=== PATIENT | female | born 1990 | race Caucasian/White ===

== ENCOUNTER 2018-03-14 18:04 | Emergency (ER) | payer MEDICAID ==
[~2018-03-14] VITALS: Ht 162.6 cm; Wt 70.3 kg
[~2018-03-14 18:04] MED LIST: ASPI81CH43 GT; DILT180C62 PO; ENAL5TAB PO; GABA250S2 PO; INSLANTI SC; METF-370 PO; PRAV20TA3 PO; PROGRAF; SIRO1TAB3 PO; SIRO2TAB PO; TACR5CAP3 PO
[2018-03-14] MEDS ORDERED: ATOR20TA50 PO (18:25)
[2018-03-14 18:49] LABS: Eosinophils # (auto) 0.1 uL
[2018-03-14 18:51] LABS: Basophils # (auto) 0.1 uL; Basophils % (auto) 0.7 % (0.0-2.0); Eosinophils % (auto) 0.3 % (0.0-7.0); Hematocrit 47.2 % (36.0-46.0); Hemoglobin 15.9 g/dL (12.2-16.2); Lymphocytes # (auto) 1.6 uL; Mean Corpuscular Hemoglobin 26.9 pg (28.0-32.0); Mean Corpuscular Hgb Conc. 33.7 g/dL (32.0-36.0); Mean Corpuscular Volume 79.9 fL (80.0-100.0); Monocytes # (auto) 0.6 uL; Monocytes % (auto) 3.3 % (0.0-12.0); Neutrophils # (auto) 15.5 uL; Neutrophils % (auto) 86.7 % (37.0-80.0); Platelet Count (auto) 526 10^3/uL (140-450); Red Blood Cells 5.91 10^6/uL (4.0-5.20); White Blood Cell 17.9 10^3/uL (4.4-10.8)
[2018-03-14 19:07] LABS: Alanine Aminotransferase 19 U/L (13-56); Albumin 3.5 g/dL (3.4-5.0); Amylase 38 U/L (25-115); Anion Gap 11 (5-15); Aspartate Aminotransferase 16 U/L (15-37); BUN/Creatinine Ratio 15.9; Blood Urea Nitrogen 14 mg/dL (7-18); Calcium 8.9 mg/dL (8.5-10.1); Carbon Dioxide 23 mmol/L (21-32); Chloride 101 mmol/L (98-107); GFR African American > 60 mL/min; GFR Non-African American > 60 mL/min; Glucose 184 mg/dL (74-106); Lipase 48 U/L (73-393); Potassium 3.9 mmol/L (3.5-5.1); Sodium 135 mmol/L (136-145)
[2018-03-14 19:10] LABS: Alkaline Phosphatase 90 U/L (45-117); Bilirubin, Total 0.8 mg/dL (0.2-1.0)
[2018-03-14] MEDS ORDERED: PANTOPRAZOLE 40 MG/10 ML VIAL IV STA (19:22)
[2018-03-14] MEDS ORDERED: MORPHINE SULFATE 10 MG/ML INJ 1ML SDV IV ONE (19:30)
[2018-03-14 19:33] LABS: Urine Bacteria FEW /hpf (None Seen); Urine Blood 1+ /uL (Negative); Urine Mucus MODERATE (None Seen); Urine Specific Gravity 1.031 (1.001-1.035); Urine WBC 314 /hpf (0 - 5)
[2018-03-14] MEDS ORDERED: cefTRIAXone 1GM/50ML D5W 50 ML IV ONE (20:30)
[2018-03-14 21:00] VITALS: BP 140/62
== END 2018-03-14 21:30 | disposition home or self-care (01) ==
LOC: ER 18:04
DX: N39.0 Urinary tract infection, site not specified (principal); E11.9 Type 2 diabetes mellitus without complications; E78.5 Hyperlipidemia, unspecified; J45.909 Unspecified asthma, uncomplicated; I10 Essential (primary) hypertension; N20.0 Calculus of kidney; Z79.4 Long term (current) use of insulin; Z79.899 Other long term (current) drug therapy; Z87.442 Personal history of urinary calculi
CPT/HCPCS: 36415; 76705; 80053; 81001; 81025; 82150; 83690; 85025; 94761; 96365; 96375; 99284; C9113; J0696; J2270

== ENCOUNTER 2022-11-02 20:38 | Inpatient (IN) | payer MEDICAID ==
[~2022-11-02] VITALS: Ht 172.7 cm; Wt 80.6 kg
[~2022-11-02 20:38] MED LIST changes: -ASPI81CH43 GT; +ATOR20TA50 PO; -ENAL5TAB PO; +ENAL5TAB22 PO; -GABA250S2 PO; -PRAV20TA3 PO
[2022-11-02] MEDS ORDERED: MIDAZOLAM DRIP 50 mg/50mL 50 ML IV ONE (20:52)
[2022-11-02] MEDS ORDERED: NOREPINEPHRINE 8 MG/250ML KIT 250 ML IV ONE (20:52)
[2022-11-02] MEDS ORDERED: fentaNYL Drip 2500mCg/250mlNS 250 ML IV ONE (21:00)
[2022-11-02] MEDS: fentaNYL Drip 2500mCg/250mlNS 250 ML IV SCH (21:00)
[2022-11-02 21:01] VITALS: BP 133/85; PULSE 126; RESP 22; O2SAT 100
[2022-11-02] MEDS ORDERED: ROCURONIUM 10MG/ML 10ML VIAL IV ONE (21:10)
[2022-11-02] MEDS ORDERED: PIPERACILLIN-TAZOB 3.375GM 100 ML IV ONE (21:30)
[2022-11-02] MEDS ORDERED: D5W/SOD CHL 0.45% 1,000 ML IV ONE (21:30)
[2022-11-02] MEDS ORDERED: LACTATED RINGER'S 1,000 ML IV ONE (21:30)
[2022-11-02] MEDS: NOREPINEPHRINE 8 MG/250ML KIT 250 ML IV SCH (22:15)
[2022-11-02 22:19] LABS: Amphetamine Screen, Urine Neg (NEGATIVE); Barbiturate Scree,Urine Neg (NEGATIVE); Benzodiazephine Screen, Urine Neg (NEGATIVE); Cannabinoid Screen, Urine Neg (NEGATIVE); Cocaine Screen, Urine Neg (NEGATIVE); Opiate Scree,Urine Neg (NEGATIVE); Phencyclidine Screen, Urine Neg (NEGATIVE)
[2022-11-02 22:20] LABS: Urine Bacteria FEW /hpf (None Seen); Urine Blood 3+ /uL (Negative); Urine Clarity HAZY (Clear); Urine Color Colorless (Yellow); Urine Hyaline Cast FEW /lpf (0 - 2); Urine Mucus FEW (None Seen); Urine Protein, UAD 3+ (Negative); Urine Specific Gravity 1.011 (1.001-1.035); Urine Urobilinogen Normal (Negative); Urine WBC 2 /hpf (0 - 5)
[2022-11-02 22:53] LABS: Hematocrit 43.9 % (36.0-46.0); Mean Corpuscular Hemoglobin 25.5 pg (28.0-32.0); Mean Corpuscular Volume 79.8 fL (80.0-100.0); Red Cell Distribution Width 13.7 % (11.8-14.3); White Blood Cell 25.2 10^3/uL (4.4-10.8)
[2022-11-02 22:55] VITALS: PULSE 123; RESP 14; O2SAT 91
[2022-11-02 22:57] LABS: Basophils % (manual) 0 (0.0-2.0); Blast Cells 0; Myelocytes % 0; Promyelocytes % 0; Reactive Lymphocytes 0
[2022-11-02 23:03] LABS: INR 1.08 (0.9-1.15); Partial Thromboplastin Time 32.5 SEC (24.5-34.5); Prothrombin Time 11.3 sec (9.3-11.8)
[2022-11-02 23:08] LABS: Acetaminophen < 2.0 UG/ML (10.0-20.0)
[2022-11-02 23:10] LABS: Beta HCG, Quantitative 1.1 mIU/mL (1.5-4.2); Salicylate < 3.0 mg/dL (2.8-20.0)
[2022-11-02 23:12] LABS: Thyroid Stimulating Hormone 4.27 uIU/mL (0.358-3.74)
[2022-11-02 23:13] LABS: Base Excess -8.8 mmol/L (-2.0-2.0)
[2022-11-02 23:27] LABS: Anisocytosis Slight; Band Neutrophils % (manual) 15; Eosinophils % (manual) 0 (0-7); Large Platelets FEW; Lymphocytes % (manual) 26 (10.0-50.0); Metamyelocytes % 1; Monocytes % (manual) 7 (0-12); Platelet Estimate Increased
[2022-11-02] MEDS ORDERED: levETIRAcetam 500 MG/5ML INJ IV ONE ×2 (23:42→23:45)
[2022-11-02] MEDS ORDERED: NITROGLYCERIN 0.4 MG SL TAB SL PRN (23:45)
[2022-11-02] MEDS ORDERED: ACETAMINOPHEN 325 MG TAB PO PRN (23:45)
[2022-11-02] MEDS ORDERED: MORPHINE SULFATE INJ 2 MG/ml SYRG IV PRN (23:45)
[2022-11-02] MEDS ORDERED: ONDANSETRON HCL 4 MG/2 ML VIAL IV PRN (23:45)
[2022-11-02] MEDS ORDERED: VANCOMYCIN 1GM/250ML 250 ML IV ONE (23:45)
[2022-11-02] MEDS ORDERED: DEXTROSE (50%) 50ML SYRG IV PRN (23:45)
[2022-11-02] MEDS ORDERED: VANCOMYCIN PER PHARMACY 0 MG IV SCH (23:45)
[2022-11-03] VITALS (100 sets, daily range): BP systolic 76–205; BP diastolic 40–164; PULSE 75–124; RESP 16–35; TEMP 89.1–97.2; O2SAT 83–100
[2022-11-03] MEDS ORDERED: InsuLIN REG 1unit/0.01ml Soln (100units/ml) SC SCH
[2022-11-03] MEDS: MIDAZOLAM DRIP 50 mg/50mL 50 ML IV SCH ×6 (00:07→23:42)
[2022-11-03 00:19] LABS: Lactic Acid w/Reflex 4.6 mmol/L (0.4-2.0)
[2022-11-03 00:23] LABS: Alanine Aminotransferase 308 U/L (7-40); Albumin 4.1 g/dL (3.2-4.8); Alkaline Phosphatase 171 U/L (46-116); Anion Gap 20.7 (5-15); Aspartate Aminotransferase 377 U/L (13-40); BUN/Creatinine Ratio 8.8 (10.0-20.0); Bilirubin, Total 0.4 mg/dL (0.2-1.0); Blood Alcohol < 3.0 mg/dL (<10); Blood Urea Nitrogen 14 mg/dL (9-23); Calcium 10.4 mg/dL (8.7-10.4); Carbon Dioxide 17.3 mmol/L (20-30); Chloride 101 mmol/L (98-107); Glucose 350 mg/dL (74-106); Lipase 43 U/L (12-53); Magnesium 2.8 mg/dL (1.6-2.6); Potassium 3.7 mmol/L (3.5-5.1); Sodium 139 mmol/L (136-145)
[2022-11-03 00:24] LABS: Total Protein 6.7 g/dL (5.7-8.2)
[2022-11-03] MEDS: ACCU-CHEK COMFORT CURVE STRIP VI SCH ×16 (00:56→22:39)
[2022-11-03] MEDS: SODIUM CHLORIDE 0.9% 1,000 ML IV SCH ×2 (01:08→14:16)
[2022-11-03 01:11] LABS: Erythrocyte Sedimentation Rate 6 mm/hr (0-20)
[2022-11-03 01:54] LABS: Base Excess -7.9 mmol/L (-2.0-2.0)
[2022-11-03 02:12] LABS: COVID19 ANTIGEN SOFIA FIA NEGATIVE (NEGATIVE); Rapid Influenza A Negative (Negative); Rapid Influenza B Negative (Negative)
[2022-11-03 03:06] LABS: CRP High Sensitivity 0.59 mg/dL (<1.0)
[2022-11-03] MEDS ORDERED: InsuLIN R (HUMAN) 100 UNITS in SODIUM CHL 0.9% 99 ML IV SCH ×3 (03:15→08:15)
[2022-11-03] MEDS ORDERED: INSULIN LANTUS (GLARGINE) 1 /0.01ml (100units/ml) SC ONE (03:15)
[2022-11-03] MEDS ORDERED: DEXTROSE (50%) 50ML SYRG IV PRN (03:15)
[2022-11-03] MEDS ORDERED: SODIUM CHLORIDE 0.9% 1,000 ML IV ONE (03:15)
[2022-11-03] MEDS ORDERED: ENOXAPARIN SOD 100 MG/1 ML SYRINGE SC ONE (03:15)
[2022-11-03] MEDS: NOREPINEPHRINE 8 MG/250ML KIT 250 ML IV SCH ×2 (04:10→13:13)
[2022-11-03 04:33] LABS: Base Excess -10.7 mmol/L (-2.0-2.0)
[2022-11-03] MEDS ORDERED: PIPERACILLIN-TAZOB 3.375GM 100 ML IV SCH (06:00)
[2022-11-03] MEDS ORDERED: VASOPRESSIN 20 UNIT/ML ONE (07:19)
[2022-11-03] MEDS: VASOPRESSIN 20 UNITS in SODIUM CHL 0.9% 99 ML IV SCH ×2 (07:20→18:22)
[2022-11-03 07:30] LABS: Alanine Aminotransferase 262 U/L (7-40); Albumin 3.1 g/dL (3.2-4.8); Alkaline Phosphatase 87 U/L (46-116); Anion Gap 12.8 (5-15); Aspartate Aminotransferase 371 U/L (13-40); BUN/Creatinine Ratio 10.2 (10.0-20.0); Blood Urea Nitrogen 18 mg/dL (9-23); Calcium 7.8 mg/dL (8.5-10.1); Carbon Dioxide 19.2 mmol/L (20-30); Chloride 105 mmol/L (98-107); Potassium 3.1 mmol/L (3.5-5.1); Sodium 137 mmol/L (136-145)
[2022-11-03 07:31] LABS: Bilirubin, Total 0.5 mg/dL (0.2-1.0); Total Protein 5.2 g/dL (5.7-8.2)
[2022-11-03 07:36] LABS: Glucose 589 mg/dL (74-106)
[2022-11-03 07:45] LABS: Base Excess -14.9 mmol/L (-2.0-2.0)
[2022-11-03] MEDS ORDERED: LORazepam 2MG/ML-1ML VIAL IV PRN (08:00)
[2022-11-03 08:03] LABS: Cholesterol 81 mg/dL (< 200); LDL Cholesterol 40 mg/dL (< 100); Triglycerides 221 mg/dL (< 150)
[2022-11-03 08:04] LABS: HDL Cholesterol 20 mg/dL (40-59)
[2022-11-03 08:16] LABS: Hemoglobin 12.4 g/dL (12.2-16.2)
[2022-11-03 08:18] LABS: Hematocrit 38.1 % (36.0-46.0); Mean Corpuscular Hemoglobin 25.9 pg (28.0-32.0); Mean Corpuscular Hgb Conc. 32.4 g/dL (32.0-36.0); Mean Corpuscular Volume 79.8 fL (80.0-100.0); Red Blood Cells 4.78 10^6/uL (4.0-5.20); Red Cell Distribution Width 13.8 % (11.8-14.3); White Blood Cell 26.1 10^3/uL (4.4-10.8)
[2022-11-03 08:22] LABS: Basophils % (manual) 0 (0.0-2.0); Blast Cells 0; Eosinophils % (manual) 0 (0-7); Metamyelocytes % 0; Myelocytes % 0; Promyelocytes % 0; Reactive Lymphocytes 0
[2022-11-03] MEDS: PHENYLEPHRINE IV 250 ML IV SCH ×2 (09:00→14:29)
[2022-11-03] MEDS: InsuLIN R (HUMAN) 100 UNITS in SODIUM CHL 0.9% 99 ML IV SCH ×3 (09:15→22:38)
[2022-11-03 09:44] LABS: Band Neutrophils % (manual) 1; Lymphocytes % (manual) 4 (10.0-50.0); Monocytes % (manual) 5 (0-12)
[2022-11-03 09:45] LABS: Platelet Estimate Adequate
[2022-11-03] MEDS ORDERED: MEPERIDINE HCL (25 MG/ML) 1ML VIAL IV PRN (09:45)
[2022-11-03] MEDS ORDERED: MEPERIDINE HCL (25 MG/ML) 1ML VIAL IV ONE (09:45)
[2022-11-03] MEDS ORDERED: ENOXAPARIN SOD 40 MG/0.4 ML SYRINGE SC SCH (10:00)
[2022-11-03] MEDS ORDERED: PANTOPRAZOLE 40 MG/10 ML VIAL INJ IV SCH (10:00)
[2022-11-03] MEDS: TACROLIMUS 1 MG CAP PO SCH ×2 (10:21→22:04)
[2022-11-03] MEDS: POTASSIUM CHL 20MEQ/100ML 100 ML IV SCH ×3 (10:21→14:15)
[2022-11-03] MEDS: fentaNYL Drip 2500mCg/250mlNS 250 ML IV SCH ×2 (13:28→20:30)
[2022-11-03] MEDS ORDERED: CEFEPIME 2GM/50ML NS 50 ML IV SCH (14:00)
[2022-11-03] MEDS ORDERED: SODIUM BICARBONATE 50ML VIAL 150 ML in D5W 5% 1,000 ML IV SCH (15:00)
[2022-11-03] MEDS ORDERED: PROPOFOL 100 ML IV ONE (15:26)
[2022-11-03] MEDS ORDERED: DOPamine 1600MCG/ML D5W 250 ML IV SCH (15:30)
[2022-11-03] MEDS ORDERED: EPINEPHrine HCL 250 ML IV SCH (15:30)
[2022-11-03] MEDS ORDERED: NOREPINEPHRINE BITARTRATE 32 MG in SODIUM CHL 0.9% 218 ML IV SCH (15:30)
[2022-11-03] MEDS: PROPOFOL 100 ML IV SCH ×2 (15:30→20:27)
[2022-11-03] MEDS ORDERED: SODIUM BICARBONATE 50ML VIAL 150 ML in SODIUM CHL 0.9% 1,000 ML IV SCH (15:45)
[2022-11-03] MEDS ORDERED: SODIUM BICARBONATE 50ML VIAL 150 ML in SODIUM CHLORIDE 0.9% 1,000 ML IV SCH (16:15)
[2022-11-03] MEDS: PHENYLEPHRINE INJ 80 MG in SODIUM CHL 0.9% 242 ML IV SCH ×2 (17:13→23:43)
[2022-11-03] MEDS ORDERED: HEPARIN DRIP/D5W 100UNITS/ML 250 ML IV SCH ×2 (17:45→18:00)
[2022-11-03] MEDS ORDERED: HEPARIN SODIUM (PORCINE) 5000 UNITS/ML 1ML VIAL IV ONE ×2 (17:45→18:00)
[2022-11-03 19:14] LABS: Hemoglobin 14.3 g/dL (12.2-16.2)
[2022-11-03 19:15] LABS: Hematocrit 43.4 % (36.0-46.0); Mean Corpuscular Hemoglobin 25.8 pg (28.0-32.0); Mean Corpuscular Volume 78.1 fL (80.0-100.0); Red Blood Cells 5.56 10^6/uL (4.0-5.20); Red Cell Distribution Width 14.2 % (11.8-14.3)
[2022-11-03 19:19] LABS: Basophils % (manual) 0 (0.0-2.0); Blast Cells 0; Eosinophils % (manual) 0 (0-7); Myelocytes % 0; Promyelocytes % 0; Reactive Lymphocytes 0
[2022-11-03 19:51] LABS: Band Neutrophils % (manual) 29; Lymphocytes % (manual) 6 (10.0-50.0); Metamyelocytes % 1; Monocytes % (manual) 3 (0-12); Platelet Estimate Adequate
[2022-11-03 20:09] LABS: INR 1.14 (0.9-1.15); Partial Thromboplastin Time 41.1 SEC (24.5-34.5); Prothrombin Time 11.9 sec (9.3-11.8)
[2022-11-03] MEDS ORDERED: ROCURONIUM 10MG/ML 10ML VIAL IV ONE (20:15)
[2022-11-03] MEDS ORDERED: InsuLIN REG 1unit/0.01ml Soln (100units/ml) ONE (22:49)
[2022-11-04] VITALS: BP_SYST 136; BP_SYST 155; BP_DIAS 76; BP_DIAS 91; PULSE 91; PULSE 92; RESP 26; TEMP 93.4; O2SAT 100
[2022-11-04] MEDS: ACCU-CHEK COMFORT CURVE STRIP VI SCH (00:01)
[2022-11-04 00:15] VITALS: BP_SYST 146; BP_SYST 161; BP_DIAS 79; BP_DIAS 85; PULSE 94; RESP 26; TEMP 93.4; O2SAT 100
[2022-11-04 00:24] VITALS: BP 146/85; PULSE 95; RESP 26; O2SAT 100
[2022-11-04] MEDS ORDERED: VANCOMYCIN 1GM/250ML 250 ML IV SCH (01:00)
[2022-11-04] MEDS ORDERED: INSULIN LANTUS (GLARGINE) 1 /0.01ml (100units/ml) SC SCH (10:00)
== END 2022-11-04 01:20 | DRG 720 ==
LOC: ER 20:38 → EDBD 20:41 → EDUNIT# 20:41 → TELE 23:46 → ICU WEST 11-03 02:49 → UNDODISIN 11-04 00:42
PROVIDERS: ADMIT Nurse Practitioner; ATTEND Internal Medicine Pulmonary Disease
PROC: 5A1945Z Respiratory Ventilation, 24-96 Consecutive Hours (ICD-10-PCS; principal; 2022-11-02)
PROC: 0BH17EZ Insertion of Endotracheal Airway into Trachea, Via Natural or Artificial Opening (ICD-10-PCS; 2022-11-02)
PROC: 5A12012 Performance of Cardiac Output, Single, Manual (ICD-10-PCS; 2022-11-02)
PROC: 06HY33Z Insertion of Infusion Device into Lower Vein, Percutaneous Approach (ICD-10-PCS; 2022-11-03)
DX: A41.9 Sepsis, unspecified organism (principal); I46.9 Cardiac arrest, cause unspecified; J96.01 Acute respiratory failure with hypoxia; R65.21 Severe sepsis with septic shock; G93.41 Metabolic encephalopathy; E83.41 Hypermagnesemia; I42.0 Dilated cardiomyopathy; J15.9 Unspecified bacterial pneumonia; I21.4 Non-ST elevation (NSTEMI) myocardial infarction; Z20.822 Contact with and (suspected) exposure to COVID-19; G93.1 Anoxic brain damage, not elsewhere classified; I12.9 Hypertensive chronic kidney disease with stage 1 through stage 4 chronic kidney disease, or unspecified chronic kidney disease; N17.9 Acute kidney failure, unspecified; E11.9 Type 2 diabetes mellitus without complications; E11.22 Type 2 diabetes mellitus with diabetic chronic kidney disease; E78.5 Hyperlipidemia, unspecified; E11.65 Type 2 diabetes mellitus with hyperglycemia; R74.01 Elevation of levels of liver transaminase levels; E66.9 Obesity, unspecified; G25.3 Myoclonus; E87.4 Mixed disorder of acid-base balance; I49.01 Ventricular fibrillation; N18.9 Chronic kidney disease, unspecified; Z87.442 Personal history of urinary calculi; Z94.1 Heart transplant status; Z79.899 Other long term (current) drug therapy; Z68.27 Body mass index [BMI] 27.0-27.9, adult
CPT/HCPCS: 36415; 36600; 70450; 71045; 71250; 72125; 74176; 80053; 80061; 80307; 80320; 80329; 81001; 82010; 82140; 82553; 82805; 82962; 83036; 83605; 83690; 83735; 83880; 83930; 84132; 84443; 84484; 84702; 85007; 85027; 85379; 85610; 85652; 85730; 86141; 87040; 87070; 87081; 87205; 87426; 87804; 93005; 93306; 93970; 94002; 94003; 96365; 99291; C1751; C9113; G0378; J0692; J1815; J2250; J2543; J2704; J3480; J7060; J7507